=== PATIENT | female | born 1965 | race Caucasian/White ===

== ENCOUNTER 2016-10-06 02:49 | Emergency (ER) | payer MEDICARE, MEDICAID ==
[~2016-10-06] VITALS: Ht 157.5 cm; Wt 57.0 kg
[2016-10-06 03:02] VITALS: BP 141/78
== END 2016-10-06 07:12 | disposition left against medical advice (07) ==
LOC: ER 02:49
DX: M79.645 Pain in left finger(s) (principal); Z53.21 Procedure and treatment not carried out due to patient leaving prior to being seen by health care provider

== ENCOUNTER 2020-04-28 05:47 | Emergency (ER) | payer MEDICAID, MEDICARE ==
[~2020-04-28] VITALS: Ht 160 cm; Wt 50.0 kg
[2020-04-28] MEDS ORDERED: ACETAMINOPHEN 325MG TABLET PO ONE (07:45)
[2020-04-28 08:48] LABS: BASOPHILS % 0.9 % (0.0-2.0); EOSINOPHILS % 2.2 % (0.0-5.0); LYMPHOCYTES % 12.4 % (20.0-50.0); MEAN CORPUSCULAR HEMOGLOBIN 30.1 pg (28.0-32.0); MEAN CORPUSCULAR VOLUME 90.6 fL (81.0-99.0); MEAN PLATELET VOLUME 9.3 fl (7.4-10.4); MONOCYTES % 7.7 % (2.0-8.0); NEUTROPHILS % 76.8 % (40.0-76.0); PLATELET 229 x1000/uL (130-400); RED CELL DISTRIBUTION WIDTH 13.3 % (11.6-14.6)
[2020-04-28 08:54] LABS: CHLORIDE 108 mEq/L (98-107)
[2020-04-28 08:55] LABS: INR 0.9
[2020-04-28 09:07] LABS: HCG SCREEN NEGATIVE
[2020-04-28] MEDS ORDERED: IOHEXOL-300 100 ML BOTTLE ONE (09:48)
[2020-04-28 10:09] VITALS: BP 130/78
== END 2020-04-28 10:09 | disposition home or self-care (01) ==
LOC: ER 05:47
DX: S22.31XA Fracture of one rib, right side, initial encounter for closed fracture (principal); J93.9 Pneumothorax, unspecified; J45.909 Unspecified asthma, uncomplicated; M25.511 Pain in right shoulder; F12.10 Cannabis abuse, uncomplicated; F17.290 Nicotine dependence, other tobacco product, uncomplicated; X58.XXXA Exposure to other specified factors, initial encounter; Y93.89 Activity, other specified; Y92.89 Other specified places as the place of occurrence of the external cause; Y99.8 Other external cause status
CPT/HCPCS: 36415; 71045; 71270; 73030; 80053; 84703; 85025; 85610; 93005; 99285; 99406; Q9967